=== PATIENT | female | born 1945 | race Caucasian/White ===

== ENCOUNTER → 2016-12-13 | Outpatient (CLI) | payer OTHER, BC | LOC: FIMAGING 08:55 | DX: Z12.31 Encounter for screening mammogram for malignant neoplasm of breast (principal) | CPT/HCPCS: G0202 ==

== ENCOUNTER 2017-06-14 13:44 | Emergency (ER) | payer OTHER, BC ==
[2017-06-14 13:50] VITALS: O2SAT 96
[2017-06-14] MEDS ORDERED: NS 1,000 ML IV ONE (14:15)
--- NOTE | 2017-06-14 14:15 | EDPHY ---
H & P Stated Complaint: LLQ ABD PAIN WITH HX DIVERTICULITIS Time Seen by Provider: 06/14/17 14:14 HPI/ROS: CHIEF COMPLAINT: Mild left lower quadrant pain HISTORY OF PRESENT ILLNESS: The patient presents emergency department mild left lower quadrant pain. The patient reports a history of diverticulitis x5. This was treated with colon resection in 2005 and she has been symptom-free since that time. Over the past day she has developed some vague left lower quadrant pain, sensation of bloating and loose stools. She denies any hematochezia. The patient denies fever or vomiting. She has no acute respiratory symptoms. The patient states her pain is mild to moderate in nature. The patient has no complaints of dysuria or flank pain. REVIEW OF SYSTEMS: A comprehensive 10 point review of systems is otherwise negative aside from elements mentioned in the history of present illness. Source: Patient Exam Limitations: No limitations - Personal History Current Tetanus/Diphtheria Vaccine: Yes - Medical/Surgical History Hx Asthma: No Hx Chronic Respiratory Disease: No Hx Diabetes: No Hx Cardiac Disease: No Hx Renal Disease: No Hx Cirrhosis: No Hx Alcoholism: No Hx HIV/AIDS: No Hx Splenectomy or Spleen Trauma: No Other PMH: HTN High Cholestral. htn. hyponatremia. DIVERTICULITIS - Social History Smoking Status: Never smoked - Physical Exam Exam: General Appearance: Alert, no distress Eyes: Pupils equal and round no pallor or injection ENT, Mouth: Mucous membranes moist Respiratory: There are no retractions, lungs are clear to auscultation Cardiovascular: Regular rate and rhythm Gastrointestinal: Mild tenderness to palpation left lower quadrant Neurological: A&O, normal motor function, normal sensory exam, normal cranial nerves Skin: Warm and dry, no rashes Musculoskeletal: Neck is supple nontender Extremities: symmetrical, full range of motion Constitutional: Initial Vital Signs Temperature (C) 36.7 C 06/14/17 13:48 Heart Rate 86 06/14/17 13:48 Respiratory Rate 16 06/14/17 13:48 Blood Pressure 153/93 H 06/14/17 13:48 O2 Sat (%) 96 06/14/17 13:48 O2 Delivery Mode Room Air Allergies/Adverse Reactions: ciprofloxacin [From Cipro] Allergy (Verified 06/14/17 13:46) ciprofloxacin HCl [From Cipro] Allergy (Verified 06/14/17 13:46) levofloxacin [From Levaquin] Allergy (Verified 06/14/17 13:46) oseltamivir phosphate [From Tamiflu] Allergy (Verified 06/14/17 13:46) Quinolones Allergy (Verified 06/14/17 13:46) Home Medications: Medication Instructions Recorded Amlodipine Besylate 06/14/17 Amoxicillin/Clavulanate Pot 875 mg PO BID #20 tab 06/14/17 [Augmentin 875 MG TAB (*)] Calcium 06/14/17 Hydrocodone/APAP 5/325 [[place] 1 - 2 each PO Q6 PRN #20 tab 06/14/17 5/325] Ondansetron Odt [Zofran Odt] 4 mg PO Q4PRN PRN #20 tab 06/14/17 Medical Decision Making ED Course/Re-evaluation: The patient presents to the ED with complaints of left-sided abdominal pain. She has a history of prior diverticulitis. She has no fever in the emergency department. She has minimal tenderness noted on exam. The patient has no peritoneal signs. The patient was taken for CT scan of the abdomen pelvis which does demonstrate recurrent diverticulitis. There is no evidence of perforation or abscess. The patient will be discharged home with a prescription for Augmentin as she is allergic to fluoroquinolones. The patient is given customary aftercare instructions and return precautions. The patient was re-evaluated at 4:00 p.m.. She is comfortable with the plan to be discharged home to manage her symptoms as an outpatient. Differential Diagnosis: Differential diagnosis considered includes diverticulitis, perforation, abscess , urinary tract infection, pancreatitis - Data Points Laboratory Results: Laboratory Results 06/14/17 14:25 06/14/17 14:25 06/14/17 06/14/17 14:25 14:25 WBC 10.32 10^3/uL H 10^3/uL (3.80-9.50) RBC 4.53 10^6/uL 10^6/uL (4.18-5.33) Hgb 14.5 g/dL g/dL (12.6-16.3) Hct 39.6 % % (38.0-47.0) MCV 87.4 fL fL (81.5-99.8) MCH 32.0 pg pg (27.9-34.1) MCHC 36.6 g/dL g/dL (32.4-36.7) RDW 13.0 % % (11.5-15.2) Plt Count 225 10^3/uL 10^3/uL (150-400) MPV 9.2 fL fL (8.7-11.7) Neut % (Auto) 80.6 % H % (39.3-74.2) Lymph % (Auto) 9.8 % L % (15.0-45.0) [place] % (Auto) 8.4 % % (4.5-13.0) Eos % (Auto) 0.4 % L % (0.6-7.6) Baso % (Auto) 0.5 % % (0.3-1.7) Nucleat RBC Rel Count 0.0 % % (0.0-0.2) Absolute Neuts (auto) 8.32 10^3/uL H 10^3/uL (1.70-6.50) Absolute Lymphs (auto) 1.01 10^3/uL 10^3/uL (1.00-3.00) Absolute Monos (auto) 0.87 10^3/uL H 10^3/uL (0.30-0.80) Absolute Eos (auto) 0.04 10^3/uL 10^3/uL (0.03-0.40) Absolute Basos (auto) 0.05 10^3/uL 10^3/uL (0.02-0.10) Absolute Nucleated RBC 0.00 10^3/uL 10^3/uL (0-0.01) Immature Gran % 0.3 % % (0.0-1.1) Immature Gran # 0.03 10^3/uL 10^3/uL (0.00-0.10) Sodium 130 mEq/L L mEq/L (134-144) Potassium 3.9 mEq/L mEq/L (3.5-5.2) Chloride 94 mEq/L L mEq/L (97-110) Carbon Dioxide 23 mEq/l mEq/l (22-31) Anion Gap 13 mEq/L mEq/L (8-16) BUN 14 mg/dL mg/dL (7-23) Creatinine 0.7 mg/dL mg/dL (0.6-1.0) Estimated GFR > 60 Glucose 167 mg/dL H mg/dL (70-100) Calcium 9.2 mg/dL mg/dL (8.5-10.4) Departure - Departure Disposition: Home, Routine, Self-Care Clinical Impression: Acute diverticulitis Condition: Good Instructions: Diverticulitis (ED) Additional Instructions: 1. Please take antibiotics as directed for diverticulitis. 2. Please return to the ED for markedly worsening symptoms, fever, vomiting or other concerns. 3. Please follow up with your primary care provider as needed. 4. Zofran as needed for nausea. 5. [place] as needed for pain. Referrals: Edson Mijares MD [Primary Care Provider] - As per Instructions
[2017-06-14 14:32] LABS: PLATELET COUNT 225 10^3/uL (150-400)
[2017-06-14] MEDS ORDERED: LORazepam 2 MG/ML INJ IVP ONE (14:36)
[2017-06-14] MEDS ORDERED: IOPAMIDOL (ISOVUE-300) 100 ML BTL ONE (15:24)
[2017-06-14] MEDS ORDERED: ONDANSETRON DISINTEGRATING 4 MG TAB ONE (16:28)
[2017-06-14] MEDS ORDERED: AMOXICILLIN/CLAVULANATE POT 875/125 MG TAB PO ONE ×2 (16:28→16:29)
[2017-06-14] MEDS ORDERED: ONDANSETRON DISINTEGRATING 4 MG TAB PO ONE (16:29)
[2017-06-14 16:57] VITALS: BP 132/77; PULSE 72; RESP 16; TEMP 99.3
== END 2017-06-14 16:57 | disposition home or self-care (01) ==
DX: K57.92 Diverticulitis of intestine, part unspecified, without perforation or abscess without bleeding (principal); E86.9 Volume depletion, unspecified; I10 Essential (primary) hypertension
CPT/HCPCS: 74177; 96360; 99285; Q9967

== ENCOUNTER → 2017-12-14 | Outpatient (CLI) | payer OTHER, BC | LOC: FIMAGING 08:19 | PROVIDERS: ATTEND Internal Medicine | DX: Z12.31 Encounter for screening mammogram for malignant neoplasm of breast (principal); Z85.3 Personal history of malignant neoplasm of breast ==

== ENCOUNTER → 2018-08-21 | Outpatient (CLI) | payer OTHER, BC | LOC: FIMAGING 12:53 | PROVIDERS: ATTEND Internal Medicine | DX: Z13.820 Encounter for screening for osteoporosis (principal); M85.89 Other specified disorders of bone density and structure, multiple sites; I10 Essential (primary) hypertension; E78.5 Hyperlipidemia, unspecified ==

== ENCOUNTER → 2018-12-17 | Outpatient (CLI) | payer OTHER, BC | LOC: FIMAGING 09:54 | PROVIDERS: ATTEND Internal Medicine | DX: Z12.31 Encounter for screening mammogram for malignant neoplasm of breast (principal); Z85.3 Personal history of malignant neoplasm of breast ==